=== PATIENT | male | born 1955 | race Caucasian/White ===

== ENCOUNTER 2023-04-23 13:45 | Outpatient (AMB) | payer MEDICARE, SELFPAY ==
--- NOTE | 2023-04-23 13:59 | MHC.OFFVIS ---
Intake Vital Signs 04/23/23 14:02 BP 118/70 Blood Pressure Location Rt brachial Position Sitting Pulse 70 Pulse Source Pulse Oximeter Pulse Oximetry (%) 95 Oxygen Delivery Method Room Air Intake Visit Reasons: ENP-JONAH Allergies environmental allergies Allergy (Unknown, Verified 04/23/23 14:07) Unknown tomato Allergy (Unknown, Verified 04/23/23 14:07) Unknown Medication List - Last Reconciled 04/23/23 by Nahomy Haque MD acetaminophen 500 mg PO Q6H PRN acetaminophen 650 mg PO Q4H PRN acetaminophen 650 mg PO Q6H PRN amiodarone 200 mg PO DAILY amlodipine 10 mg PO DAILY aspirin 81 mg PO DAILY atorvastatin 20 mg PO BEDTIME azelastine 1 spray intranasal BID bisacodyl 10 mg AL DAILY PRN calcium carbonate-vitamin D3 600 mg-10 mcg (400 unit) 1 tab PO DAILY dapagliflozin propanediol (Farxiga) 5 mg PO QAM dulaglutide (Trulicity) 3 mg subcut QWEEK duloxetine 30 mg PO DAILY duloxetine 60 mg PO BEDTIME finasteride 5 mg PO DAILY furosemide (Lasix) 40 mg PO BID glucagon (GlucaGen HypoKit) 1 mg subcut Q20M PRN guaifenesin 200 mg PO Q4H PRN insulin glargine (Lantus U-100 Insulin) 110 units subcut DAILY insulin lispro 25 units subcutaneously with meals; ipratropium-albuterol 0.5 mg-3 mg(2.5 mg base)/3 mL 3 mL inhalation Q6H PRN levothyroxine 100 mcg PO DAILY lisinopril 5 mg PO DAILY loratadine (Allergy Relief (loratadine)) 10 mg PO DAILY menthol 0.1% (Eucerin Itch Relief) ea topical metoprolol tartrate 25 mg PO BID montelukast 10 mg PO BEDTIME naloxone 4 mg/actuation (Narcan) 1 spray intranasal Q2M potassium bicarb-citric acid 20 mEq 20 mEq PO DAILY pregabalin 100 mg PO DAILY tamsulosin 0.4 mg PO BEDTIME trazodone 75 mg PO DAILY HPI HPI Comments History of Present Illness Details 68y/o male with multiple medical comes for sleep evaluation .He is currently in a halfway facility for his back pain. Main complaints- Sleep questionnaire- Difficulty falling asleep-yes 30-45 minutes Difficulty staying asleep-yes Number of arousals-4- 5, nocturia Snoring-yes Witnessed apneas-yes Gasping arousals-yes Nocturia-yes GERD-no Vivid dreams-yes Acting out dreams -no Abnormal behavior in sleep-no ABnormal movements in sleep-yes- lef twicthing Morning headaches-NO Excessive daytime sleepiness-yes Daytime naps- yes- 1 hr restless legs- yes Hallucinations- no sleep paralysis- no Drop attacks- no Sleep study-yes- many years ago He stopped using CPAP when he moved. Sleep Hygiene- Sleep time 10-11 pm Wake time 6am coffee/stimulant use 3-4 cups Phone Electronics use-uses it all day Exercise- none Bedroom comfort- not comfortable [facility] Medical History (Updated 04/23/23 @ 15:00 by Nahomy Haque MD) Hypersomnia Snoring Hypothyroidism COPD (chronic obstructive pulmonary disease) Chronic back pain Insomnia BPH (benign prostatic hyperplasia) CHF (congestive heart failure) Heart failure CKD (chronic kidney disease) Hyperlipidemia HTN (hypertension) Diabetes Depression Surgical History Hx of cholecystectomy History of back surgery Family History Mother Diabetes Social History Household Members Other:: [facility] [place] Housing: Assisted Living Facility Alcohol intake: never Patient Tobacco Use Status: Never used Tobacco Physical Exam Vital Signs: Last Vital Signs Pulse 70 04/23/23 14:02 BP 118/70 04/23/23 14:02 Pulse Ox 95 04/23/23 14:02 Oxygen Delivery Method Room Air 04/23/23 14:02 Const General: cooperative, comfortable and no acute distress Nutritional Appearance: obese Orientation/consciousness: patient oriented x3 Neuro Other: mallampatti grade 4 General: patient oriented x3, tone normal, moves all extremities, no focal motor deficits and Unable to assess gait Cranial nerves: Yes Facial sensation intact/muscles of mastication intact, Yes Bilaterally intact EOM present, Yes Nystagmus not present, Yes Normal facial strength present and Yes Midline tongue present Cognition (Neuro): normal cognition Gait exam (Neuro): Unable to assess gait Assessment & Plan Assessment & Plan (1) Insomnia: Code(s): G47.00 - Insomnia, unspecified (2) Snoring: Code(s): R06.83 - Snoring (3) Hypersomnia: Code(s): G47.10 - Hypersomnia, unspecified Plan I will schedule him for a home sleep test to r/o sleep apnea. Orders: Orders RT home sleep study Today G47.10 - Hypersomnia, unspecified, R06.83 - Snoring Coding Level of Care Code New Pt Level 3 (81668) Diagnoses Insomnia G47.00 Snoring R06.83 Hypersomnia G47.10
[2023-04-23 14:02] VITALS: BP 118/70; PULSE 70; O2SAT 95
== END 2023-04-23 14:43 | disposition home or self-care (01) ==
PROVIDERS: PCP Family Medicine Geriatric Medicine; Visit Provider Psychiatry & Neurology Neurology
DX: G47.00 Insomnia, unspecified (principal); R06.83 Snoring; G47.10 Hypersomnia, unspecified
CPT/HCPCS: 99203

== ENCOUNTER → 2023-04-23 13:45 | Outpatient (BNVA) | payer OTHER, SELFPAY | PROVIDERS: PCP Family Medicine Geriatric Medicine; Visit Provider Nurse Practitioner Family | DX: G47.00 Insomnia, unspecified (principal); G47.10 Hypersomnia, unspecified; R06.83 Snoring | CPT/HCPCS: 99202 ==

== ENCOUNTER → 2023-06-13 20:30 | Outpatient (REF) | payer OTHER, SELFPAY | LOC: HO.SL 20:30 | PROVIDERS: PCP Family Medicine Geriatric Medicine; Visit Provider Psychiatry & Neurology Neurology | DX: G47.33 Obstructive sleep apnea (adult) (pediatric) (principal); R06.83 Snoring; G47.10 Hypersomnia, unspecified; G47.00 Insomnia, unspecified; J44.9 Chronic obstructive pulmonary disease, unspecified | CPT/HCPCS: 95810 ==

== ENCOUNTER → 2023-06-13 22:17 | Outpatient (BNV) | payer OTHER, SELFPAY | PROVIDERS: PCP Family Medicine Geriatric Medicine; Visit Provider Internal Medicine | DX: G47.33 Obstructive sleep apnea (adult) (pediatric) (principal) | CPT/HCPCS: 95810 ==

== ENCOUNTER 2023-08-14 10:14 | Outpatient (AMB) | payer OTHER, SELFPAY ==
--- NOTE | 2023-08-14 10:16 | MHC.OFFVIS ---
Intake Vital Signs 08/14/23 10:28 Height 5 ft 8 in Weight 323 lb BMI 49.1 BP 112/62 Blood Pressure Location Lt brachial Position Semi Flood's Pulse 78 Pulse Source Pulse Oximeter Pulse Oximetry (%) 93 Oxygen Delivery Method Room Air Intake Visit Reasons: 3 mnts f/u for JONAH - Conf w/address Intake Note: Patient presents for 3 months F/U. Allergies environmental allergies Allergy (Unknown, Verified 08/14/23 10:28) Unknown tomato Allergy (Unknown, Verified 08/14/23 10:) Unknown HPI HPI Comments History of Present Illness Details 68 y/o male patient presents for follow up of sleep study. The PSG sleep study result was significant for a mild to moderate degree of sleep apnea. Total AHI was 15/hr, snoring for 27% of the sleep time. Most of the obstructive events were in REM stage and in left lateral position. Pt started APAP at [id number] a few weeks ago. The CPAP compliance and therapy response reviewed. The usage days 16 days and the average usage hours 3 hrs 20 min. The max pressure was 10.9 and the residual AHI was 3.3/hr. Pt reports he sleep well with CPAP, less snoring and rested. He feels less tired in the morning and more awake. [facility] Medical History (Updated 08/14/23 @ 11:20 by Yue Antunez CNP) Hypersomnia Snoring Hypothyroidism COPD (chronic obstructive pulmonary disease) Chronic back pain Insomnia BPH (benign prostatic hyperplasia) CHF (congestive heart failure) Heart failure CKD (chronic kidney disease) Hyperlipidemia HTN (hypertension) Diabetes Depression Surgical History Hx of cholecystectomy History of back surgery Family History Mother Diabetes Social History Household Members Other:: [facility] [place] Housing: Assisted Living Facility Alcohol intake: never Patient Tobacco Use Status: Never used Tobacco Review of Systems Const All systems reviewed & are unremarkable except as noted in HPI and below Physical Exam Vital Signs: Last Vital Signs Pulse 78 08/14/23 10:28 BP 112/62 08/14/23 10:28 Pulse Ox 93 08/14/23 10:28 Oxygen Delivery Method Room Air 08/14/23 10:28 BMI result Body Mass Index 49.1 Const General: cooperative, comfortable and no acute distress Nutritional Appearance: obese Orientation/consciousness: patient oriented x3 Neuro Other: mallampatti grade 4 General: patient oriented x3, tone normal, moves all extremities, no focal motor deficits and Unable to assess gait Cranial nerves: Yes Facial sensation intact/muscles of mastication intact, Yes Bilaterally intact EOM present, Yes Nystagmus not present, Yes Normal facial strength present and Yes Midline tongue present Cognition (Neuro): normal cognition Gait exam (Neuro): Unable to assess gait Assessment & Plan Assessment & Plan (1) JONAH (obstructive sleep apnea): Code(s): G47.33 - Obstructive sleep apnea (adult) (pediatric) Plan Continue to use APAP at [id number] as patient experiences good clinical effects, less snoring and sleep quality and daytime sleepiness has improved. Stressed compliance, use CPAP nightly and more than 4 hrs. Coding Level of Care Code Est Pt Level 3 (80784) Diagnoses JONAH (obstructive sleep apnea) G47.33
[2023-08-14 10:28] VITALS: BP 112/62; PULSE 78; O2SAT 93; BMI 49.1
== END 2023-08-14 10:43 | disposition home or self-care (01) ==
PROVIDERS: PCP Family Medicine Geriatric Medicine; Visit Provider Nurse Practitioner Family
DX: G47.33 Obstructive sleep apnea (adult) (pediatric) (principal)
CPT/HCPCS: 99213

== ENCOUNTER → 2023-08-14 10:14 | Outpatient (BNVA) | payer OTHER, SELFPAY | PROVIDERS: PCP Family Medicine Geriatric Medicine; Visit Provider Nurse Practitioner Family | DX: G47.33 Obstructive sleep apnea (adult) (pediatric) (principal) | CPT/HCPCS: 99212 ==

== ENCOUNTER 2024-02-13 09:39 | Outpatient (AMB) | payer OTHER, SELFPAY ==
--- NOTE | 2024-02-13 09:54 | MHC.OFFVIS ---
Vital Signs 02/13/24 09:55 Height 5 ft 8 in Weight 335 lb BMI 50.9 Intake Visit Reasons: 6 Month F/U Intake Note: Patient presents for 6 month follow up. patient got a cpap sleeping better. Allergies environmental allergies Allergy (Unknown, Verified 02/13/24 10:01) Unknown tomato Allergy (Unknown, Verified 02/13/24 10:01) Unknown Medication List - Last Reconciled 02/13/24 by EDVIN Harris acetaminophen 500 mg PO Q6H PRN acetaminophen 650 mg PO Q4H PRN acetaminophen 650 mg PO Q6H PRN amiodarone 200 mg PO DAILY amlodipine 10 mg PO DAILY aspirin 81 mg PO DAILY atorvastatin 20 mg PO BEDTIME azelastine 1 spray intranasal BID bisacodyl 10 mg [place] DAILY PRN calcium carbonate-vitamin D3 600 mg-10 mcg (400 unit) 1 tab PO DAILY dapagliflozin propanediol (Farxiga) 5 mg PO QAM dulaglutide (Trulicity) 3 mg subcut QWEEK duloxetine 30 mg PO DAILY duloxetine 60 mg PO BEDTIME finasteride 5 mg PO DAILY furosemide (Lasix) 40 mg PO BID glucagon (GlucaGen HypoKit) 1 mg subcut Q20M PRN guaifenesin 200 mg PO Q4H PRN insulin glargine (Lantus U-100 Insulin) 110 units subcut DAILY insulin lispro 25 units subcutaneously with meals; ipratropium-albuterol 0.5 mg-3 mg(2.5 mg base)/3 mL 3 mL inhalation Q6H PRN levothyroxine 100 mcg PO DAILY lisinopril 5 mg PO DAILY loratadine (Allergy Relief (loratadine)) 10 mg PO DAILY menthol 0.1% (Eucerin Itch Relief) ea topical metoprolol tartrate 25 mg PO BID montelukast 10 mg PO BEDTIME naloxone 4 mg/actuation (Narcan) 1 spray intranasal Q2M potassium bicarb-citric acid 20 mEq 20 mEq PO DAILY pregabalin 100 mg PO DAILY tamsulosin 0.4 mg PO BEDTIME trazodone 75 mg PO DAILY HPI Comments Details: 68-yr-old male presents for follow-up visit of sleep apnea. Pt was previously seen by our former colleague Yue Antunez NP. Pt continues to reside in LTC in a [facility], with plans to be discharged home once they can help him find housing. He states he sleeps well with APAP. However, he had not been using the APAP as the mask clip was broken, and he could not afford to replace it. But when he finally thought he could afford to replace it, he was already due to receive a new mask. So, he started to use his APAP again a few days ago. States he does sleep well with use, but is having to get used to using it again. Denies daytime tiredness. He does endorse SOB at times, h/o COPD. He states he does not use supplemental O2. States he is not needing to use a rescue inhaler/tx. Reviewed previous in-lab sleep study: In-lab PSG which revealed: AHI 15/hr and REM AHI 31/hr w/ O2 andres 78% w/ SpO2 < 88% x's 63 min, and average SpO2 89%; Periodic limb movement of sleep (PLMS) index: 53/hr; PLMS arousal index: 6/hr. Current 90 dfay compliance report: [facility] [place] [address] Email: [email or web address] Compliance Report Usage 11/15/2023 - 02/12/2024 Usage days days (10%) >= 4 hours 4 days (4%) < 4 hours 5 days (6%) Average usage (days used) 3 hours 30 minutes AirSense 10 AutoSet Serial number [id number] Mode AutoSet Min Pressure 5 cmH2O Max Pressure 20 cmH2O EPR Fulltime EPR level 3 Response Standard Therapy Pressure - cmH2O Median: 6.7 95th percentile: 8.7 Maximum: 9.3 Leaks - L/min Median: 8.7 95th percentile: 21.9 Maximum: 61.1 Events per hour AI: 1.0 HI: 0.2 AHI: 1.2 Apnea Index Central: 0.1 Obstructive: 0.7 Unknown: 0.2 RERA Index 0.1 PFSH Medical History Hypersomnia Snoring Hypothyroidism COPD (chronic obstructive pulmonary disease) Chronic back pain Insomnia BPH (benign prostatic hyperplasia) CHF (congestive heart failure) Heart failure CKD (chronic kidney disease) Hyperlipidemia HTN (hypertension) Diabetes Depression Surgical History Hx of cholecystectomy History of back surgery Family History Mother Diabetes Social History Household Members Other:: [facility] [place] Housing: Assisted Living Facility Alcohol intake: never Patient Tobacco Use Status: Never used Tobacco Physical Exam Vital Signs: BMI result Body Mass Index 50.9 Const General: cooperative, no acute distress, alert and awake Orientation/consciousness: patient oriented x3 HEENT Other: Mallampati stage Resp Effort & Inspection: normal respiratory effort and able to speak in complete sentences Neuro General: patient oriented x3 Cranial nerves: Yes CN's II-XII intact bilaterally Gait exam (Neuro): Normal gait present Psych Mental Status: mental status grossly normal Speech and movement: Clear speech present Attitude: cooperative Assessment & Plan Assessment & Plan (1) JONAH (obstructive sleep apnea): Code(s): G47.33 - Obstructive sleep apnea (adult) (pediatric) Category: Medical (2) Nocturnal hypoxemia: Code(s): G47.34 - Idiopathic sleep related nonobstructive alveolar hypoventilation Category: Medical (3) COPD (chronic obstructive pulmonary disease): Code(s): J44.9 - Chronic obstructive pulmonary disease, unspecified Category: Medical Plan Reviewed results of previous sleep study report, results c/w mild-moderate sleep apnea w/ increased severity in REM sleep and in left sided sleep position, as well as nocturnal hypoxemia. Although current [employer] compliance report does show low residual AHI, the APAP device itself cannot be used to determine current APAP tx efficacy on optimizing pt's nocturnal hypoxemia. Thus, I have advised to undergo in-lab PAP titration study w/ ET Co2 levels to determine optimal PAP treatment settings of both sleep apneas and nocturnal hypoxemia. In the meantime, continue APAP 5-20 cmH2O nightly > 4 hours. Clean CPAP machine and supplies routinely. Change CPAP supplies routinely. Pt to contact us or respiratory company with any questions or concerns. SNF info: [facility] Unit- Room 101-B Orders: Orders RT PSG in-lab sleep titration Today G47.33 - Obstructive sleep apnea (adult) (pediatric), G47.34 - Idiopathic sleep related nonobstructive alveolar hypoventilation, J44.9 - Chronic obstructive pulmonary disease, unspecified Coding Level of Care Code Est Pt Level 4 (63558) Diagnoses JONAH (obstructive sleep apnea) G47.33 Nocturnal hypoxemia G47.34 COPD (chronic obstructive pulmonary disease) J44.9
[2024-02-13 09:55] VITALS: BMI 50.9
== END 2024-02-13 11:01 | disposition home or self-care (01) ==
PROVIDERS: PCP Family Medicine Geriatric Medicine; Visit Provider Nurse Practitioner Family
DX: G47.33 Obstructive sleep apnea (adult) (pediatric) (principal); G47.34 Idiopathic sleep related nonobstructive alveolar hypoventilation; J44.9 Chronic obstructive pulmonary disease, unspecified
CPT/HCPCS: 99214

== ENCOUNTER → 2024-02-13 09:39 | Outpatient (BNVA) | payer MEDICARE, OTHER, SELFPAY | PROVIDERS: PCP Family Medicine Geriatric Medicine; Visit Provider Nurse Practitioner Family ==

== ENCOUNTER 2024-03-09 19:36 | Emergency (ER) | payer OTHER, SELFPAY ==
--- NOTE | 2024-03-09 | ECG_ITS ---
Test Reason : HYPERTENSION Blood Pressure : / mmHG Vent. Rate : 070 BPM Atrial Rate : 070 BPM P-R Int : 176 ms QRS Dur : 098 ms QT Int : 426 ms P-R-T Axes : 083 026 040 degrees QTc Int : 460 ms Normal sinus rhythm Normal ECG No previous ECGs available Referred By: Generic ED Physician Electronically Signed By:GRETA GUAN MD
[2024-03-09 19:46] VITALS: BP 137/68; PULSE 76; RESP 18; TEMP 36.8; O2SAT 97; BMI 48.7
[2024-03-09 20:05] LABS: Glucose, Whole Blood 220 mg/dL (60-115)
--- NOTE | 2024-03-09 20:08 | PC.NURSE ---
Pt A&Ox3 skin pwd respirations even unlabored. Currently being treated for UTI on day 3 of abx. Pt previously denied pain, now reporting intermittent sharp chest pain x 4 days. Worse upon inspiration radiating into back. EKG ordered and given to provider, REENA on monitor. Awaiting provider eval, aware of plan of care.
[2024-03-09 20:13] VITALS: PULSE 80; RESP 18; O2SAT 96
[2024-03-09 20:30] LABS: MANUAL DIFF FLAG NO
[2024-03-09 20:32] LABS: Basophils Absolute Auto 0.1 X10*3/uL (0.0-0.2); Basophils Percent Auto 0.5 % (0-2); Eosinophils Absolute Auto 0.2 X10*3/uL (0.0-0.4); Eosinophils Percent Auto 1.7 % (0-4); Hematocrit 47.4 % (42.0-52.0); Hemoglobin 15.8 g/dl (14.0-18.0); Imm Gran Abs Auto 0.04 X10*3/uL (0.00-0.03); Imm Gran Pct Auto 0.4 % (0.0-0.4); Lymphocytes Absolute Auto 1.4 X10*3/uL (1.2-4.9); Lymphocytes Percent Auto 13.9 % (20-40); Mean Corpuscular HGB Conc 33.3 g/dl (31.0-36.0); Mean Corpuscular Hemoglobin 29.9 pg (27.0-33.0); Mean Corpuscular Volume 89.8 fL (80.0-98.0); Mean Platelet Volume 11.8 fL (9.4-12.4); Monocytes Absolute Auto 0.8 X10*3/uL (0.1-1.2); Monocytes Percent Auto 7.8 % (2-11); Neutrophils Absolute Auto 7.5 x10*3/uL (2.0-8.3); Neutrophils Percent Auto 75.7 % (45-73); Platelet Count 192 X10*3/uL (160-400); Red Blood Count 5.28 X10*6/uL (4.60-5.80); Red Cell Distribution Width 14.1 % (11.0-16.0); White Blood Count 9.9 X10*3/uL (4.8-10.8)
[2024-03-09 20:51] LABS: Alanine Aminotransferase 19 U/L (0-40); Alkaline Phosphatase 105 U/L (39-117); Anion Gap 14 (12-20); Aspartate Amino Transferase 21 U/L (5-37); Bilirubin Total 0.3 mg/dL (0.0-1.0); Blood Urea Nitrogen 26 mg/dL (9-16); Calcium 9.8 mg/dL (8.4-10.2); Carbon Dioxide 23 mmol/L (22-29); Chloride 103 mmol/L (96-108); Creatinine Clr Calc Pharmacy 54.4; Estimated Glomerular Filt Rate 36; Glucose Random 247 mg/dL (60-115); Potassium 4.3 mmol/L (3.3-5.1); Sodium 136 mmol/L (135-145); Total Protein 7.3 g/dL (6.5-8.0)
[2024-03-09 20:54] LABS: B Type Natriuretic Peptide 29 pg/mL (<100)
[2024-03-09 20:56] LABS: Troponin-I High Sensitivity 13.2 ng/L (<3.5-35.0)
[2024-03-09 22:09] VITALS: BP 115/59; PULSE 68; RESP 16; TEMP 36.8; O2SAT 94
--- NOTE | 2024-03-09 22:13 | PC.NURSE ---
Aspen from [place] called this RN. Pt was given trazadone before leaving facility as well as metoprolol. Pt continues to await primary provider jayy.
--- NOTE | 2024-03-09 23:15 | PC.NURSE ---
to stacey for primary eval.
--- NOTE | 2024-03-09 23:18 | ED_ITS ---
HPI - General Adult General Chief complaint: General Medical Stated complaint: HTN 204/115 Time Seen by Provider: 03/09/24 23:10 Source: patient and EMS Mode of arrival: EMS Limitations: no limitations History of Present Illness ED Provider: Dr. Chanda Ruff HPI narrative: Patient comes to the emergency room complaining of high blood pressure. Patient states that he was in a pen[facility]iary, coming from [facility] in [place]. He was about to go to get a sleep study done, prior to transfer, at the penitentiary to check his blood pressure. Patient was informed that his blood pressure was was ?high?. Patient states that he has no symptoms, no chest pain shortness of breath, headache, blurred vision. Patient states that he takes blood pressure medications and he is compliant with his meds. Related Data Home Medications ?Medication ?Instructions ?Recorded ?Confirmed acetaminophen 325 mg capsule 650 mg PO Q4H PRN 04/23/23 02/13/24 acetaminophen 500 mg capsule 500 mg PO Q6H PRN 04/23/23 02/13/24 acetaminophen 650 mg/20.3 mL oral 650 mg PO Q6H PRN 04/23/23 02/13/24 solution amiodarone 200 mg tablet 200 mg PO DAILY 04/23/23 02/13/24 amlodipine 10 mg tablet 10 mg PO DAILY 04/23/23 02/13/24 aspirin 81 mg chewable tablet 81 mg PO DAILY 04/23/23 02/13/24 atorvastatin 20 mg tablet 20 mg PO BEDTIME 04/23/23 02/13/24 azelastine 137 mcg (0.1 %) nasal 1 spray intranasal BID 04/23/23 02/13/24 spray bisacodyl 10 mg rectal suppository 10 mg MT DAILY PRN 04/23/23 02/13/24 calcium carbonate 600 mg-vitamin 1 tab PO DAILY 04/23/23 02/13/24 D3 10 mcg (400 unit) tablet dapagliflozin propanediol 5 mg 5 mg PO QAM 04/23/23 02/13/24 tablet (Farxiga) dulaglutide 3 mg/0.5 mL 3 mg subcut QWEEK 04/23/23 02/13/24 subcutaneous pen injector ([facility]) duloxetine 30 mg capsule,delayed 30 mg PO DAILY 04/23/23 02/13/24 release sprinkle duloxetine 30 mg capsule,delayed 60 mg PO BEDTIME 04/23/23 02/13/24 release sprinkle finasteride 5 mg tablet 5 mg PO DAILY 04/23/23 02/13/24 furosemide 40 mg tablet (Lasix) 40 mg PO BID 04/23/23 02/13/24 glucagon 1 mg solution for 1 mg subcut Q20M PRN 04/23/23 02/13/24 injection (GlucaGen HypoKit) guaifenesin 100 mg/5 mL oral liquid 200 mg PO Q4H PRN 04/23/23 02/13/24 insulin glargine 100 unit/mL 110 unit subcut DAILY 04/23/23 02/13/24 subcutaneous solution (Lantus U-100 Insulin) insulin lispro 100 unit/mL 25 unit subcut .COMPLEX 04/23/23 02/13/24 subcutaneous pen ipratropium 0.5 mg-albuterol 3 mg 3 ml inhalation Q6H PRN 04/23/23 02/13/24 (2.5 mg base)/3 mL nebulization soln levothyroxine 100 mcg capsule 100 mcg PO DAILY 04/23/23 02/13/24 lisinopril 5 mg tablet 5 mg PO DAILY 04/23/23 02/13/24 loratadine 10 mg tablet (Allergy 10 mg PO DAILY 04/23/23 02/13/24 Relief (loratadine)) menthol 0.1 % lotion (Eucerin Itch ea topical 04/23/23 02/13/24 Relief) metoprolol tartrate 25 mg tablet 25 mg PO BID 04/23/23 02/13/24 montelukast 10 mg tablet 10 mg PO BEDTIME 04/23/23 02/13/24 naloxone 4 mg/actuation nasal 1 spray intranasal Q2M 04/23/23 02/13/24 spray (Narcan) potassium bicarbonate-citric acid 20 meq PO DAILY 04/23/23 02/13/24 20 mEq effervescent tablet pregabalin 100 mg capsule 100 mg PO DAILY 04/23/23 02/13/24 tamsulosin 0.4 mg capsule 0.4 mg PO BEDTIME 04/23/23 02/13/24 trazodone 50 mg tablet 75 mg PO DAILY 04/23/23 02/13/24 Allergies Allergy/AdvReac Type Severity Reaction Status Date / Time environmental allergies Allergy Unknown Unknown Verified 02/13/24 10:01 tomato Allergy Unknown Unknown Verified 02/13/24 10:01 Penicillins Allergy Unknown Verified 03/09/24 19:49 Review of Systems 2 Review of Systems: Constitutional : No Weight loss, No Fever, No Chills, No Night Sweats, No Fatigue, No Malaise ENT/Mouth : No Hearing loss, No Ear Pain, No Nasal Congestion, No Sinus Pain, No Hoarseness, No sore throat, No Rhinorrhea, No Swallowing Difficulty Eyes: No Eye Pain, No Swelling, No Redness, No Foreign Body, No Discharge, No Vision Changes Cardiovascular : No Chest Pain, No SOB, No Dyspnea on Exertion, No Orthopnea, No Edema, No Palpitations Respiratory : No Cough, No Sputum, No Wheezing, No Smoke Exposure, No Dyspnea Gastrointestinal : No Nausea, No Vomiting, No Diarrhea, No Constipation, No abdominal Pain, No Hematochezia, No Melena Genitourinary : no irregular bleeding, No Dysuria, No Urinary Frequency, No Hematuria, No Urinary Incontinence, No Urgency, No Flank Pain, No Urinary Flow Changes, No Hesitancy Musculoskeletal : No joint pain, No Myalgias, No Joint Swelling Skin : No Skin Lesions, No rash Neuro : No Weakness, No Numbness, No Paresthesias, No Loss of Consciousness, No Dizziness, No Headache Psych : No Anxiety/Panic, No Depression, No SI/HI/AH/VH, No Social Issues, Heme/Lymph: No Bruising, No Bleeding,No Lymphadenopathy Endocrine : No Polyuria, No Polydipsia, No Temperature Intolerance [facility] Past Medical History Medical History Hypersomnia Snoring Hypothyroidism COPD (chronic obstructive pulmonary disease) Chronic back pain Insomnia BPH (benign prostatic hyperplasia) CHF (congestive heart failure) Heart failure CKD (chronic kidney disease) Hyperlipidemia HTN (hypertension) Diabetes Depression Surgical History Hx of cholecystectomy History of back surgery Family History Family History Mother Diabetes Social History Social History Household Members Other:: [facility] [place] Housing: Assisted Living Facility Alcohol intake: never Patient Tobacco Use Status: Never used Tobacco Smoked in Last 30 Days: No Use of substances other than those prescribed or required for medical reasons: No Advance Directives: No Advance Directives Information Provided: No Do you have a plan to hurt others: No Plan Physical Exam ED Vital Signs: Vital Signs - 24 hr 03/09/24 19:46 03/09/24 20:13 03/09/24 22:09 Temperature 98.3 F 98.3 F Pulse Rate 76 80 68 Respiratory Rate 18 18 16 Blood Pressure 137/68 115/59 L Pulse Oximetry 97 96 94 Oxygen Delivery Method Room Air Room Air Room Air BMI result Body Mass Index 48.7 Const Other: Appearance: Alert. Oriented X3. No acute distress. Eyes: Pupils equal, round and reactive to light. ENT: Pharynx normal. Neck: Normal inspection. Neck supple. No lymph nodes noted. No crepitus CVS: Normal heart rate and rhythm. Pulses normal. Normal S1 and S2 Respiratory: No respiratory distress. Breath sounds normal. No Wheezing. No rales Abdomen: Soft and nontender. No rigidity. No distention. Skin: Skin warm and dry. Normal skin color. Normal skin turgor. Extremities: No lower extremity edema. No Lacerations. No Rash, chronic venous stasis Neuro: Oriented X 3. No motor deficit. No sensory deficit. Moving all extremities. No slurred speech. CN 2 through 12 grossly intact Psych: calm, cooperative, normal affect Medical Decision Making Medical Decision Making MDM Narrative: My interpretation of EKG: Normal sinus rhythm, heart rate 70, no ST segment depression or elevation, no T-wave inversion, QTC 460 -my interpretation of labs: Normal hematology, chemistry shows creatinine of 1.88. Patient does have history of chronic kidney disease., normal LFTs, normal troponin and BNP -patient's blood pressure in the emergency room have ranged between 115 systolic 124 systolic. -no episodes of hypotension here in the emergency room. Patient is asymptomatic. -it is possible that patient may have gotten anxious when they picked him up and then his blood pressure self corrected. Or, the blood pressure device at the penitentiary is not working well or is not calibrated Lab Data MDM Lab Attestation statement: I reviewed the patient's lab results. 03/09/24 20:27 03/09/24 20:27 Labs: Lab Results 03/09/24 03/09/24 Range/Units 20:01 20:27 WBC 9.9 (4.8-10.8) X10*3/uL RBC 5.28 (4.60-5.80) X10*6/uL Hgb 15.8 (14.0-18.0) g/dl Hct 47.4 (42.0-52.0) % MCV 89.8 (80.0-98.0) fL MCH 29.9 (27.0-33.0) pg MCHC 33.3 (31.0-36.0) g/dl RDW 14.1 (11.0-16.0) % Plt Count 192 (160-400) X10*3/uL MPV 11.8 (9.4-12.4) fL Immature Gran % (Auto) 0.4 (0.0-0.4) % Neut % (Auto) 75.7 H (45-73) % Lymph % (Auto) 13.9 L (20-40) % [place] % (Auto) 7.8 (2-11) % Eos % (Auto) 1.7 (0-4) % Baso % (Auto) 0.5 (0-2) % Lymph # (Auto) 1.4 (1.2-4.9) X10*3/uL [place] # (Auto) 0.8 (0.1-1.2) X10*3/uL Eos # (Auto) 0.2 (0.0-0.4) X10*3/uL Baso # (Auto) 0.1 (0.0-0.2) X10*3/uL Abs Immat Gran (auto) 0.04 H (0.00-0.03) X10*3/uL Absolute Neuts (auto) 7.5 (2.0-8.3) x10*3/uL Absolute Nucleated RBC 0.000 (0.0-0.012) X10*3/uL Nucleated RBC % (auto) 0.0 (0.0-0.2) /100WBC Sodium 136 (135-145) mmol/L Potassium 4.3 (3.3-5.1) mmol/L Chloride 103 (96-108) mmol/L Carbon Dioxide 23 (22-29) mmol/L Anion Gap 14 (12-20) BUN 26 H (9-16) mg/dL Creatinine 1.88 H (0.5-1.4) mg/dL Estim Creat Clear Calc 54.4 Estimated GFR 36 POC Glucose 220 H (60-115) mg/dL Random Glucose 247 H (60-115) mg/dL Calcium 9.8 (8.4-10.2) mg/dL Total Bilirubin 0.3 (0.0-1.0) mg/dL AST 21 (5-37) U/L ALT 19 (0-40) U/L Alkaline Phosphatase 105 (39-117) U/L Troponin I High Sens 13.2 (<3.5-35.0) ng/L B-Natriuretic Peptide 29 (<100) pg/mL Total Protein 7.3 (6.5-8.0) g/dL Albumin 4.0 (3.5-5.0) g/dL Independent Interpretation I performed an independent interpretation of an: EKG Discharge Plan Discharge Clinical Impression: Hypertension Patient Disposition: Home, Self-Care Instructions: Hypertension (ED) Additional Instructions: Your blood pressure has been normal in the emergency room from the time that you arrived. No changes have been made to your medications. Please follow-up with your primary care physician tomorrow. If you have any worsening or new symptoms, please return to the emergency room or call 911 Prescriptions: No Action acetaminophen 500 mg capsule 500 mg PO Q6H PRN acetaminophen 325 mg capsule 650 mg PO Q4H PRN acetaminophen 650 mg/20.3 mL solution 650 mg PO Q6H PRN amiodarone 200 mg tablet 200 mg PO DAILY amlodipine 10 mg tablet 10 mg PO DAILY aspirin 81 mg tablet,chewable 81 mg PO DAILY atorvastatin 20 mg tablet 20 mg PO BEDTIME azelastine 137 mcg (0.1 %) aerosol,spray 1 spray intranasal BID Rx Instructions: administer into each nostril bisacodyl 10 mg suppository 10 mg MT DAILY PRN calcium carbonate-vitamin D3 600 mg-10 mcg (400 unit) tablet 1 tab PO DAILY duloxetine 30 mg capsule, delayed rel sprinkle 30 mg PO DAILY duloxetine 30 mg capsule, delayed rel sprinkle 60 mg PO BEDTIME Eucerin Itch Relief 0.1 % lotion topical Farxiga 5 mg tablet 5 mg PO QAM finasteride 5 mg tablet 5 mg PO DAILY tamsulosin 0.4 mg capsule 0.4 mg PO BEDTIME Trulicity 3 mg/0.5 mL pen injector 3 mg subcut QWEEK GlucaGen HypoKit 1 mg recon soln 1 mg subcut Q20M PRN Rx Instructions: until target blood sugar attained guaifenesin 100 mg/5 mL liquid 200 mg PO Q4H PRN insulin lispro 100 unit/mL insulin pen 25 unit subcut .COMPLEX Rx Instructions: 25 units subcutaneously with meals; insulin glargine [Lantus U-100 Insulin] 100 unit/mL solution 110 unit subcut DAILY ipratropium-albuterol 0.5 mg-3 mg(2.5 mg base)/3 mL solution for nebulization 3 ml inhalation Q6H PRN furosemide [Lasix] 40 mg tablet 40 mg PO BID levothyroxine 100 mcg capsule 100 mcg PO DAILY lisinopril 5 mg tablet 5 mg PO DAILY loratadine [Allergy Relief (loratadine)] 10 mg tablet 10 mg PO DAILY metoprolol tartrate 25 mg tablet 25 mg PO BID montelukast 10 mg tablet 10 mg PO BEDTIME naloxone [Narcan] 4 mg/actuation spray,non-aerosol 1 spray intranasal Q2M Rx Instructions: spray 1 dose into ONE nostril; alternate nostrils w each dose until help arrives potassium bicarb-citric acid 20 mEq tablet, effervescent 20 meq PO DAILY pregabalin 100 mg capsule 100 mg PO DAILY trazodone 50 mg tablet 75 mg PO DAILY Print Language: Welsh
--- NOTE | 2024-03-09 23:33 | PC.NURSE ---
Pt cleared for dc back to facility. Transport booked.
[2024-03-09 23:37] VITALS: BP 109/60; PULSE 91; RESP 16; TEMP 36.7; O2SAT 97
--- NOTE | 2024-03-09 23:39 | MHC.EDTECH ---
This pct assumed care of Patient at 2300 ,vitals taken ,Patient waiting for discharged Paperwork .
[2024-03-10 00:39] VITALS: BP 109/60; PULSE 91; RESP 16; TEMP 36.7; O2SAT 97
== END 2024-03-10 00:39 | disposition home or self-care (01) ==
PROVIDERS: Emergency Provider Emergency Medicine
DX: I13.0 Hypertensive heart and chronic kidney disease with heart failure and stage 1 through stage 4 chronic kidney disease, or unspecified chronic kidney disease (principal); E11.22 Type 2 diabetes mellitus with diabetic chronic kidney disease; N18.9 Chronic kidney disease, unspecified; I50.9 Heart failure, unspecified; Z79.899 Other long term (current) drug therapy
CPT/HCPCS: 36415; 80053; 82947; 83880; 84484; 85025; 93005; 99283; 99284

== ENCOUNTER → 2024-03-09 19:51 | Outpatient (BNV) | payer OTHER, SELFPAY | PROVIDERS: Emergency Provider Emergency Medicine; Visit Provider Internal Medicine Cardiovascular Disease | DX: I10 Essential (primary) hypertension (principal) | CPT/HCPCS: 93010 ==

== ENCOUNTER 2025-02-23 11:35 | Outpatient (REF) | payer MEDICARE, SELFPAY ==
--- OUTSIDE RECORDS SUMMARY | 2025-02-23 10:15 | XMS_ITS | Encounter Summary ---
Author Organization [employer] Address [address] [place] [address] Care Team Providers Care Mixing And Dispensing Supervisor Name Role Phone Julio C Duarte MD Primary Care Prov ider Encounter Details Date Type Department Care Team ([facility] st Contact Info) Description 02/23/2025 10:15 AM EDT Office Visit [facility] [address] [place], [place] [phone] Julio C Duarte MD [address] [place] [address] Type 2 diabetes mellitus with stage 4 chronic kidney disease, with long-term current use of insulin (HCC) Social History Tobacco Use Types Packs/Day Years Used Date Smoking Tobacco: Every Day Cigarettes 2 25 Started: 1984 Smokeless Tobacco: Never Alcohol Use Standard Drinks/Week Comments Never 0 (1 standard drink = 0.6 oz pur e alcohol) Depression Answer Date Recorded Patient Health Questionnaire-9 Score 5 01/27/2025 Patient Health Questionnaire-9 Score 5 01/27/2025 Last PHQ-9: Questionnaire Data Not on file 0 01/27/2025 Housing Stability Answer Date Recorded What is your housing situation today? I have eligio pickering 01/27/[address] you li ve. Do you have problems with any of the following? None of the above 01/27/2025 Food Insecurity Answer Date Recorded Within the past 12 months, y ou worried that your food would run out before you got money to buy more: Never True 01/27/2025 Within the past 12 months,th e food you bought just didn't last and you didn't have enough money to get more: Never True Transportation Answer Date Recorded In the past 12 months, has l ack of transportation kept you from medical appts, meetings, work or from getting things needed for daily living? No 01/27/2025 Utilities Answer Date Recorded In the past 12 months, has t he electric, gas, oil or water company threatened to shut off services in your home? No 01/27/2025 Depression Answer Date Recorded Patient Health Questionnaire-2 Score 2 01/27/2025 Internet Access Answer Date Recorded Internet Access Q1 Yes 01/27/2025 Internet Access Q2 Not on file 01/27/2025 Sex and Gender Information Value Date Recorded Sex Assigned at Male 12/13/2023 11:04 AM EDT Legal Sex Male 11:03 AM EDT Gender Identity Male 12/13/2023 11:04 AM EDT Sexual Orientation Choose not to disclose 2023 11:04 AM EDT documented as of this encounter Last Filed Vital Signs Vital Sign Reading Time Taken Comments Blood Pressure 124/78 02/23/2025 10:43 AM EDT Pulse 76 02/23/2025 10:43 AM EDT Temperature 36.6 C (97.8 F) 02/23/2025 10:43 AM EDT Respiratory Rate 16 02/23/2025 10:43 AM EDT Oxygen Saturation - - Inhaled Oxygen Concentration - - Weight 126 kg (278 lb) 02/23/2025 10:43 AM EDT Height 165.1 cm (5' 5 ) 02/23/2025 10:43 AM EDT Body Mass Index 46.26 02/23/2025 10:43 AM EDT documented in this encounter Plan of Treatment Upcoming Encounters Date Type Department Care Team (Late st Contact Info) Description 04/06/2025 9:30 AM EST Telemedicine [facility] [address] [place] [address] Julio C Duarte MD [address] [place] [address] documented as of this encounter Procedures Procedure Name Priority Date/Time Associated Diagnosis Comments POCT GLUCOSE Routine 02/23/2025 1:51 PM EDT Type 2 diabetes mellitus with stage 4 chronic kidney disease, with long-term current use of insulin (HCC) POCT GLYCATED HEMOGLOBIN, TOTAL Routine 02/23/2025 1:50 PM EDT Type 2 diabetes mellitus with stage 4 chronic kidney disease, with long-term current use of insulin (HCC) documented in this encounter Results * (ABNORMAL) POCT Glucose (02/23/2025 1:51 PM EDT) Glucose Blood, POC 265(A) 60 - 200 mg/dL QC Media Lot # [id number] Lot# Expiration Date [id number] Blood Capillary blood specimen / Unknown 02/23/2025 1:51 PM EDT Julio C Bañuelos MD POINT OF CARE TEST ENTER/EDIT ORDERABLES Final Result * (ABNORMAL) POCT Hgb A1c (02/23/2025 1:50 PM EDT) Hemoglobin A1C 9.3(A) 4.0 - 5.7 % QC Media Lot # [id number] Lot# Expiration Date ,[id number] Blood 02/23/2025 1:50 PM EDT Julio C Bañuelos MD POINT OF CARE TEST ENTER/EDIT ORDERABLES Final Result documented in this encounter Visit Diagnoses Diagnosis Type 2 diabetes mellitus with stage 4 chronic kidney disease, with long-term current use of insulin (HCC) documented in this encounter Additional Health Concerns Assessment Noted Time PHQ-9 Depression Total Score: 5 01/28/20 25 10:24 AM EDT documented as of this encounter Care Teams Mixing And Dispensing Supervisor Relationship Specialty Start Date End Date Julio C Duarte MD [address] [place] [id number] PCP - General Internal Medicine [facility] documented as of this encounter
[2025-02-23 14:23] LABS: Appearance Urine Clear; Glucose Urine UA >=1000 mg/dL (Negative); PH 7.0 (5.0-9.0); Specific Gravity - Urine 1.010 (1.005-1.025); UMIC TRIGGER UACC YES
[2025-02-23 14:26] LABS: UACC Culture Trigger YES
[2025-02-23 14:48] LABS: MANUAL DIFF FLAG NO
[2025-02-23 14:52] LABS: Hematocrit 51.3 % (42.0-52.0); Hemoglobin 16.7 g/dl (14.0-18.0); Imm Gran Abs Auto 0.05 X10*3/uL (0.00-0.03); Imm Gran Pct Auto 0.5 % (0.0-0.4); Lymphocytes Absolute Auto 1.1 X10*3/uL (1.2-4.9); Mean Corpuscular HGB Conc 32.6 g/dl (31.0-36.0); Mean Corpuscular Hemoglobin 28.6 pg (27.0-33.0); Mean Corpuscular Volume 88.0 fL (80.0-98.0); NRBC Abs Auto 0.000 X10*3/uL (0.0-0.012); NRBC Pct Auto 0.0 /100WBC (0.0-0.2); Platelet Count 225 X10*3/uL (160-400); Red Blood Count 5.83 X10*6/uL (4.60-5.80); White Blood Count 9.9 X10*3/uL (4.8-10.8)
--- OUTSIDE RECORDS SUMMARY | 2025-02-23 15:07 | XMS_ITS | Clinical Summary ---
Author Organization [facility], Address [address] [place] [address] [place] [address] Phone Care Team Providers Care Gimp Tacker Name Role Phone Milana Wang MD Primary Care Provider [phone] Allergies Active Allergy Reactions Criticality Noted Date Comments Penicillins 09/17/2019 Medications glucose monitoring kit (FREESTYLE) monitoring kit 1 each if needed Active albuterol HFA (PROVENTIL HFA;VENTOLIN HFA) 108 (90 Base) MCG/ACT inhaler Inhale 2 puffs every 6 (six) hours if needed for wheezing Active insulin glargine (LANTUS) 100 UNIT/ML injection Inject under the skin every night Active DULoxetine (CYMBALTA) [address] capsule Take 60 mg by mouth 1 (one) time each day Do not crush or chew. Active tamsulosin (FLOMAX) 0.4 MG 24 hr capsule Take 0.4 mg by mouth 1 (one) time each day Active pregabalin (LYRICA) 100 MG capsule Take 100 mg by mouth 2 (two) times a day Active insulin aspart (NovoLOG) 100 UNIT/ML injection Inject under the skin 3 (three) times a day before meals Active potassium chloride (KLOR-CON) 20 MEQ packet Take 20 mEq by mouth 2 (two) times a day Active Cholecalcifero l (VITAMIN D-3) 125 MCG (5000 UT) tablet Take by mouth Active amiodarone (PACERONE) 200 MG tablet Take 200 mg by mouth 1 (one) time each day Active finasteride (PROSCAR) 5 MG tablet Take 5 mg by mouth 1 (one) time each day Do not crush, chew, or split. Active levothyroxine sodium (TIROSINT) 112 MCG capsule Take 112 mcg by mouth 1 (one) time each day Active lovastatin (MEVACOR) 40 MG tablet Take 40 mg by mouth every night Active HumaLOG KWIKPEN 200 UNIT/ML solution pen-injector injection 1 Active Accu-Chek Sayra Plus test strip USE STRIP TO CHECK GLUCOSE TWICE DAILY DIRECTED 0 Active atorvastatin (LIPITOR) 20 MG tablet TAKE 1 TABLET BY MOUTH ONCE DAILY FOR 90 DAYS 0 Active lisinopril (PRINIVIL,ZEST RIL) 5 MG tablet Take 5 mg by mouth daily 0 Active metoprolol tartrate (LOPRESSOR) 25 MG tablet Take 25 mg by mouth 2 (two) times a day 0 Active RELION PEN NEEDLE 31G/8MM 31G X 8 MM misc USE TO TEST DIRECTED 6 TIMES A DAY SUBCUTANEOUSLY 0 Active montelukast (SINGULAIR) 10 MG tablet Take 10 mg by mouth 1 (one) time each day in the evening 0 Active triamcinolone (KENALOG) 0.1 % cream APPLY TOPICALLY TWICE DAILY 0 Active acetaminophen (TYLENOL) 325 MG tablet Take by mouth every 6 (six) hours if needed for mild pain Active azelastine (ASTELIN) 0.1 % nasal spray Administer 1 spray into each nostril 2 (two) times a day Use in each nostril as directed Active Dulaglutide (Trulicity) 0.75 MG/0.5ML solution pen-injector Inject 0.5 mL under the skin every 7 (seven) days Active aspirin (ST TAVON) 81 MG EC tablet Take 81 mg by mouth 1 (one) time each day Active amLODIPine (NORVASC) 10 MG tablet Take 10 mg by mouth 1 (one) time each day Active Torsemide 40 MG tablet Take 40 mg by mouth 1 (one) time each day Active Active Problems Problem Noted Date Diagnosed Date Stage 3b chronic kidney disease 03/18/2022 Obstructive nephropathy 03/18/2022 Other retention of urine 03/18/2022 Type 2 diabetes mellitus without complication Hypertension 09/17/2019 Congestive heart failure 09/17/2019 Resolved Problems Problem Noted Date Diagnosed Date Resolved Date Chronic renal insufficiency 09/17/2019 03/18/2022 Social History Tobacco Use Types Packs/Day Years Used Date Smoking Tobacco: Former Smokeless Tobacco: Never Tobacco Cessation:Counseling Given: Not Answered Alcohol Use Standard Drinks/Week Comments Yes 0 (1 standard drink = 0.6 oz pur e alcohol) rare Sex and Gender Information Value Date Recorded Sex Assigned at Not on file Legal Sex Male 2:27 PM EDT Gender Identity Not on file Sexual Orientation Not on file Last Filed Vital Signs Vital Sign Reading Time Taken Comments Blood Pressure 90/60 10/05/2024 10:10 AM EDT Pulse 80 09/17/2022 10:28 AM EDT Temperature - - Respiratory Rate - - Oxygen Saturation 96% 09/17/2022 10:28 AM EDT Inhaled Oxygen Concentration - - Weight 150 kg (330 lb) 09/17/2022 10:28 AM EDT Height 177.8 cm (5' 10 ) 09/17/2022 10:28 AM EDT Body Mass Index 47.35 09/17/2022 10:28 AM EDT Plan of Treatment Upcoming Encounters Date Type Department Care Team (Late st Contact Info) Description 04/26/2025 2:30 PM EST Office Visit [facility] [address] [place] [phone] Blas Quick MD [address] [place] [address] [place] [phone] Health Maintenance Due Date Last Done Comments Pneumococcal Vaccine: 50+ Ye ars (1 of 2 - PCV) 1974 Colorectal Cancer Screening: Annual FOBT 2004 Colorectal Cancer Screening: Colonoscopy 2004 Colorectal Cancer Screening: Sigmoidoscopy 2004 Diabetes: Hemoglobin A1C 03/18/2022 Diabetes: Ophthalmology Exam 03/18/2022 Diabetes: Pedal Pulse Checked 03/18/2022 Diabetes: Sensory Foot Exam 03/18/2022 Diabetes: Visual Foot Exam 03/18/2022 Influenza Vaccine (#1) 2025 Hepatitis B Vaccine Aged Out No longe r eligible based on patient's age to complete this topic Insurance [facility] Medicare Medicare Medicaid [place] [address] [place] [address] Care Teams Gimp Tacker Relationship Specialty Start Date End Date Milana Wang MD [address] [place] [id number] PCP - General Internal Medicine 09/17/19
--- OUTSIDE RECORDS SUMMARY | 2025-02-23 15:07 | XMS_ITS | Encounter Summary ---
Author Organization [employer] Address [address] [place] [address] Care Team Providers Care And Rescue Fire Fighter Crash Fire Name Role Phone Julio C Duarte MD Primary Care Prov ider Reason for Visit * Reason Onset Date Comments Chart Prep 02/22/2025 Encounter Details Date Type Department Care Team ([facility] Contact Info) Description 02/22/2025 Telephone [facility] [address] [place] [address] Julio C Duarte MD [address] [place] [address] Chart Prep Social History Tobacco Use Types Packs/Day Years [...] AM EDT documented as of this encounter Miscellaneous Notes * Telephone Encounter - Ashley Arechiga [place] - 02/22/2025 2:38 PM EDT Chart Prep Labs: not done Images: done Referrals: not applicable Vaccines due:due Screenings: colonoscopy, eye exam, foot exam, STI screening, and Lung CA screening Overdue care gaps: A1c and Glucose documented in this encounter Plan of Treatment Upcoming Encounters Date Type Department Care Team (Late st Contact Info) Description 04/06/2025 9:30 AM EST Telemedicine [facility] [address] [place] [address] Julio C Duarte MD [address] [place] [address] documented as of this encounter Visit Diagnoses Not on filedocumented in this encounter Additional Health Concerns Assessment Noted Time PHQ-9 Depression Total Score: 5 01/28/20 25 10:24 AM EDT documented as of this encounter Care Teams And Rescue Fire Fighter [employer] Relationship Specialty Start Date End Date Julio C Duarte MD [address] [place] [address] PCP - General Internal Medicine 12/22/24 [facility] 01/25/25 documented as of this encounter
--- OUTSIDE RECORDS SUMMARY | 2025-02-23 15:08 | XMS_ITS | Clinical Summary ---
Author Organization [employer] Address [address] [place] [address] Care Team Providers Care Manager Of Manufacturing Name Role Phone Julio C Duarte MD Primary Care Prov ider Allergies Active Allergy Reactions Criticality Noted Date Comments Penicillins 12/22/2024 Medications DULoxetine (Cymbalta) [address] capsule Take 1 capsule (30 mg) by mouth in the morning. Do not crush or chew. 30 capsule 2 12/22/2024 5 Active DULoxetine (Cymbalta) [address] capsule Take 1 capsule (60 mg) by mouth at bedtime. Do not crush or chew. 30 capsule 2 12/22/2024 5 Active insulin lispro (HumaLOG) 100 UNIT/ML injection Inject 10 Units under the skin with breakfast, with lunch, and with evening meal. 11/10/2020 Active Insulin Glargine-yfgn 100 UNIT/ML solution pen-injector Inject 20 Units under the skin Once per day. 08/18/2024 Active gabapentin (Neurontin) 100 MG capsule Take 1 capsule (100 mg) by mouth at bedtime. 30 capsule 11 01/27/2025 6 Active traZODone (Desyrel) 50 MG tablet Take 1 tablet (50 mg) by mouth at bedtime. 90 tablet 3 01/27/2025 6 Active tamsulosin (Flomax) 0.4 MG 24 hr capsule Take 1 capsule (0.4 mg) by mouth Once per day. 90 capsule 3 01/27/2025 6 Active clopidogrel (Plavix) 75 MG tablet Take 1 tablet (75 mg) by mouth Once per day. 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 Not at target He was discharged from hospital on a lower dose than what he used to be for insulin. Increase lantus to 20 units and restart short acting insulin 10 units tid before meals. Followed by endocrinology, told to schedule a follow up DNR (do not resuscitate) 01/27/2025 Assessment & Plan (01/27/2025 1:59 PM EDT): Discussed with patient his wishes. He does not want to have CPR in a cardiorespiratory event, does not want to be intubated for more than 24 hours, does not want to get dialysis. Encounter for medical examination to establish c are 12/22/2024 Assessment & Plan (12/22/2024 2:29 PM EDT): PCP: located at [place] Hospitalization: 12/2024 due to CVA s/p stent, PMHx: afib, DM, self catheterization due to enlarged, stage 4 ckd, HTN, CVA, hyperlipidemia, hypothyroidism Pshx: gallbladder 2017, back surgery 1973, hip surgery Right 2010 All: PNC Meds: insulin 10 units morning, eliquis 5mg BID, spironolactone 25mg daily, levothyroxine 112mcg, metoprolol tartrate 50mg BID, hailey 10mg, torsemide 20mg daily, albuterol PRN, atorvastatin 40mg daily, duloxetine 30mg, duloxetine 60mg at night, montelukast 10mg, tamsulosin 0.4mg, trazodone 50mg bedtime, plavix 75mg, proscar 5mg Colonosocopy done about 10 yrs ago Encounters Date Type Department Care Team Description 02/23/2025 10:15 AM EDT Office Visit [facility] [address] [place] [address] Julio C Duarte MD Type 2 diabetes mellitus with stage 4 chronic kidney disease, with long-term current use of insulin ([facility]) 02/23/2025 Travel 02/22/2025 Telephone [facility] [address] [place] [address] Julio C Duarte MD Chart Prep 02/16/2025 Telephone [facility] [address] [place] [address] Yelena Nicholson, PharmD 02/04/2025 Telephone [facility] [address] [place] [address] Yelena Nicholson, PharmD 01/27/2025 10:00 AM EDT Office Visit [facility] [address] [place] [address] Julio C Duarte MD Type 2 diabetes mellitus with stage 4 chronic kidney disease, with long-term current use of insulin ([facility] [place]) (Primary Dx); Dietary counseling; Exercise counseling; Primary hypertension; DNR (do not resuscitate) 01/27/2025 Travel 01/26/2025 Travel 01/26/2025 Telephone [facility] [address] [place] [address] Julio C Duarte MD chart prep 01/08/2025 Telephone [facility] [address] [place] [address] Julio C Duarte MD verbal order 12/22/2024 1:45 PM EDT Telemedicine [facility] [address] [place] [address] Julio C Duarte MD Encounter for medical examination to establish care (Primary Dx) 12/22/2024 Travel 12/21/2024 Telephone [facility] [address] [place] [address] Julio C Duarte MD chart prep 12/02/2024 Telephone [facility] [address] [place] [address] Julio C Duarte MD No Show 12/02/2024 Telephone [facility] [address] [place] [address] Julio C Duarte MD Televisit appt 12/01/2024 Telephone [facility] [address] [place] [address] Nicki Castañeda MA Chart Prep from Last 3 Months Immunizations Immunization Administration Dates Next Due Influenza, IIV3, injectable 02/15/2023 RSV Adjuvant 07/12/2023 RSV-MAB, Unspecified 07/12/2023 SARS-CoV-2, Unspecified 04/05/2022 Family History Medical History Relation Name Comments Kidney disease Father Bone cancer Maternal Grandfather Diabetes Mother Bone cancer Paternal Grandmother Relation Name Status Comments Father Maternal Grandfather Mother Paternal Grandmother Social History Tobacco Use Types Packs/Day Years Used Date Smoking Tobacco: Every Day Cigarettes 2 25 Started: 1984 Smokeless Tobacco: Never Tobacco Cessation:Ready to Q uit: Not Asked; Counseling Given: Not Answered Alcohol Use Standard Drinks/Week Comments Never 0 [...] not to disclose 2023 11:04 AM EDT Last Filed Vital Signs Vital Sign Reading [...] Mass Index 46.26 02/23/2025 10:43 AM EDT Plan of Treatment Upcoming Encounters Date Type Department Care Team (Late st Contact Info) Description 04/06/2025 9:30 AM EST Telemedicine [facility] [address] [place] [address] Julio C Duarte MD [address] [place] [address] Health Maintenance Due Date Last Done Comments CT Colonography 1955 Colonoscopy 1955 Colorectal Cancer Screening 1955 FIT DNA/Cologuard 1955 FIT 1955 FOBT 1955 Lipid Panel 1955 Sigmoidoscopy 1955 Diabetes: Foot Exam 1965 Eye Exam 1965 Hepatitis C Screening 1973 DTaP/Tdap/Td Vaccines (1 - Tdap) 1974 Pneumococcal Vaccine: 50+ Years (1 of 2 - PCV) 1974 Lung Cancer Screening 2005 Zoster Vaccines (1 of 2) 2005 COVID-19 Vaccine ( season) 2025 08/22/2023, 02/08/2023, 04/05/2022, Additional history exists Influenza Vaccine (#1) 2025 02/15/2023 Diabetes: Hemoglobin A1C 05/26/2025 02/23/2025 Alcohol/Substance Use Screening 01/27/2026 01/27/2025 Depression Screening 01/27/2026 01/27/2025, 01/28/20 25 SDOH Screening 01/27/2026 01/27/2025 Tobacco Screening 02/15/2026 02/15/2025 RSV Patients and Patients Aged 60 years or older Completed 07/12/2023 RSV under 20 months Aged Out 07/12/2023 No longe r eligible based on patient's age to complete this topic HIB Vaccines Aged Out No longer eligi ble based on patient's age to complete this topic HPV Vaccines Aged Out No longer eligi ble based on patient's age to complete this topic Hepatitis A Vaccines Aged Out No long er eligible based on patient's age to complete this topic Hepatitis B Vaccines Aged Out No long er eligible based on patient's age to complete this topic IPV Vaccines Aged Out No longer eligi ble based on patient's age to complete this topic Meningococcal B Vaccine Aged Out No l onger eligible based on patient's age to complete this topic Meningococcal Vaccine Aged Out No baljeet hiral eligible based on patient's age to complete this topic Rotavirus Vaccines Aged Out No longer eligible based on patient's age to complete this topic Procedures Procedure Name Priority Date/Time Associated Diagnosis Comments POCT GLUCOSE Routine 02/23/2025 1:51 PM EDT Type 2 diabetes mellitus with stage 4 chronic kidney disease, with long-term current use of insulin (HCC) POCT GLYCATED HEMOGLOBIN, TOTAL Routine 02/23/2025 1:50 PM EDT Type 2 diabetes mellitus with stage 4 chronic kidney disease, with long-term current use of insulin (HCC) URINALYSIS, COMPLETE, WITH REFLEX TO CULTURE Routine 02/23/2025 11:40 AM EDT Type 2 diabetes mellitus with stage 4 chronic kidney disease, with long-term current use of insulin (HCC) CBC WITH AUTO DIFFERENTIAL Routine 02/23/2025 11:38 AM EDT Type 2 diabetes mellitus with stage 4 chronic kidney disease, with long-term current use of insulin (HCC) from Last 3 Months Results * (ABNORMAL) POCT Glucose (02/23/2025 1:51 PM EDT) Pathologist [facility] Glucose Blood, POC 265(A) 60 - 200 mg/dL QC Media Lot # [id number] Lot# Expiration Date , Blood Capillary blood specimen / Unknown 02/23/2025 1:51 PM EDT Julio C Bañuelos MD POINT OF CARE TEST ENTER/EDIT ORDERABLES Final Result * (ABNORMAL) POCT Hgb A1c (02/23/2025 1:50 PM EDT) [facility] Hemoglobin A1C 9.3(A) 4.0 - 5.7 % QC Media Lot # [id number] Lot# Expiration Date [id number] Blood 02/23/2025 1:50 PM EDT Julio C Bañuelos MD POINT OF CARE TEST ENTER/EDIT ORDERABLES Final Result * (ABNORMAL) Urinalysis, Complete, with Reflex to Culture (02/23/2025 11:40 AM EDT) Pathologist [facility] Color Urine Yellow [facility] Appearance Urine Clear [facility] PH 7.0 5.0 - 9.0 [facility] Glucose Urine UA >=1000(A) Negative mg/dL [facility] Urine Blood Trace(A) Negative [facility] Specific Allison - Urine 1.010 1.005 - 1.025 [facility] Urine Protein Negative Neg-Trace mg/dL [facility] Urine Ketones Negative Negative mg/dL [facility] Nitrite Urine Negative Negative [facility] Leukocyte Esterase Urine Large (3+)(A) Negative [facility] RBC Urine 0-2 0 - 2 /HPF [facility] Urine WBC >50(A) 0 - 5 /HPF [facility] Urine Squamous Epithelial Cell 0-2 0 - 2 /HPF [facility] Urine Bacteria 4+ None Seen [facility] Hyaline Casts, Urine 0-2 0 - 2 /LPF [facility] Urine 02/23/2025 11:4 0 AM EDT 02/23/2025 2:13 PM EDT Narrative [facility] - 02/23/2025 2:26 PM EDT [id number], Clean Catch us Julio C Bañuelos MD LAB URINE ORDERABL ES Final Result [facility] [address] [place] [phone] * (ABNORMAL) CBC auto differential (02/23/2025 11:38 AM EDT) White Blood Count 9.9 4.8 - 10.8 X10*3/uL [facility] Red Blood Count 5.83(H) 4.60 - 5.80 X10*6/uL [facility] Hemoglobin 16.7 14.0 - 18.0 g/dl [facility] Hematocrit 51.3 42.0 - 52.0 % [facility] Mean Corpuscular Volume 88.0 80.0 - 98.0 fL [facility] Mean Corpuscular Hemoglobin 28.6 27.0 - 33.0 pg [facility] Mean Corpuscular HGB Conc 32.6 31.0 - 36.0 g/dl [facility] Red Cell Distribution Width 15.8 11.0 - 16.0 % [facility] Platelet Count 225 160 - 400 X10*3/uL [facility] Mean Platelet Volume 11.4 9.4 - 12.4 fL [facility] Neutrophils Percent Auto 77.5(H) 45 - 73 % [facility] Imm Gran Pct Auto 0.5(H) 0.0 - 0.4 % [facility] Lymphocytes Percent Auto 11.5(L) 20 - 40 % [facility] Monocytes Percent Auto 7.5 2 - 11 % [facility] Eosinophils Percent Auto 2.4 0 - 4 % [facility] Basophils Percent Auto 0.6 0 - 2 % [facility] NRBC Pct Auto 0.0 0.0 - 0.2 /100WBC [facility] Neutrophils Absolute Auto 7.7 2.0 - 8.3 x10*3/uL [facility] Imm Gran Abs Auto 0.05(H) 0.00 - 0.03 X10*3/uL [facility] Lymphocytes Absolute Auto 1.1(L) 1.2 - 4.9 X10*3/uL [facility] Monocytes Absolute Auto 0.7 0.1 - 1.2 X10*3/uL [facility] Eosinophils Absolute Auto 0.2 0.0 - 0.4 X10*3/uL [facility] Basophils Absolute Auto 0.1 0.0 - 0.2 X10*3/uL [facility] NRBC Abs Auto 0.000 0.0 - 0.012 X10*3/uL [facility] Blood Venous blood specimen / Unknown 02/23/2025 11:38 AM EDT 02/23/2025 2:44 PM EDT us Julio C Bañuelos MD LAB BLOOD ORDERABL ES Final Result [facility] [address] [place] [address] [phone] from Last [address] [place] [id number] [facility] Care Teams Manager Of Manufacturing Relationship Specialty Start Date End Date Julio C Duarte MD [address] [place] [phone] PCP - General Internal Medicine 12/22/24 [facility] 01/25/25
--- OUTSIDE RECORDS SUMMARY | 2025-02-23 15:08 | XMS_ITS | Encounter Summary ---
Author Organization [facility], Address [address] [place] [address] Phone Care Team Providers Care Lab Asst Name Role Phone Milana Wang MD Primary Care Provider [phone] Encounter Details Date Type Department Care Team (Late Contact Info) Description 04/03/2024 Documentation Only [facility] [address] [place] [address] [place] [address] [place] [phone] Social History Tobacco Use Types Packs/Day Years Used Date Smoking Tobacco: Former Smokeless Tobacco: Never Alcohol Use Standard Drinks/Week Comments Yes 0 (1 standard drink = 0.6 oz pur e alcohol) rare Sex and Gender Information Value Date Recorded Sex Assigned at Not on file Legal Sex Male 2:27 PM EDT Gender Identity Not on file Sexual Orientation Not on file documented as of this encounter Plan of Treatment Upcoming Encounters Date Type Department Care Team (Late st Contact Info) Description 04/26/2025 2:30 PM EST Office Visit [facility] [address] [place] [address] Blas Quick MD [address] [place] [address] Dr[address] Verón[place] [address] documented as of this encounter Visit Diagnoses Not on filedocumented in this encounter Care Teams Lab Asst Relationship Specialty Start Date End Date Milana Wang MD [address] [place] [phone] PCP - General Internal Medicine 09/17/19 documented as of this encounter
--- OUTSIDE RECORDS SUMMARY | 2025-02-23 15:08 | XMS_ITS | Encounter Summary ---
Author Organization [facility], Address [address] [place] [address] Phone Care Team Providers Care Beam Builder Name Role Phone Milana Wang MD Primary Care Provider [phone] Encounter Details Date Type Department Care Team (Late Contact Info) Description 06/27/2023 Documentation Only [facility] [address] [place] [address] [place] [address] [place] [phone] Social History Tobacco Use Types Packs/Day [...] [facility] [address] [place] [address] Blas Quick MD [address] [place] [address] Dr[address] [place]ón[place] [address] documented as of this encounter Visit Diagnoses Not on filedocumented in this encounter Care Teams Beam Builder Relationship Specialty Start Date End Date Milana Wang MD [address] [place] [phone] PCP - General Internal Medicine 09/17/19 documented as of this encounter
--- OUTSIDE RECORDS SUMMARY | 2025-02-23 15:08 | XMS_ITS | Encounter Summary ---
Author Organization [facility], Address [address] [place] [address] Phone Care Team Providers Care Timber Framer Helper Name Role Phone Milana Wang MD Primary Care Provider Encounter Details Date Type Department Care Team (Late Contact Info) Description 06/24/2023 Documentation Only [facility] [address] [place] [address] [place] [address] [place] [phone] Social History Tobacco Use Types Packs/Day [...] Visit [facility] [address] [place] [address] Blas Quick MD [address] [place] [address] Dr[address] [place]ón[place] [address] documented as of this encounter Visit Diagnoses Not on filedocumented in this encounter Care Teams Timber Framer Helper Relationship Specialty Start Date End Date Milana Wang MD [address] [place] [phone] PCP - General Internal Medicine 09/17/19 documented as of this encounter
--- OUTSIDE RECORDS SUMMARY | 2025-02-23 15:08 | XMS_ITS | Encounter Summary ---
Author Organization [employer] Address [address] [facility] [address] [place] [address] Care Team Providers Care Html Web Developer Name Role Phone Julio C Duarte MD Primary Care Prov ider Encounter Details Date Type Department Care Team (Latest Contact Info) Description 02/23/2025 Travel Social History Tobacco Use Types Packs/Day Years Used Date Smoking Tobacco: Every Day Cigarettes 2 Started: 1984 Smokeless Tobacco: Never Alcohol Use [...] AM EDT documented as of this encounter Plan of Treatment Upcoming Encounters Date Type Department Care Team (Late st Contact Info) Description 04/06/2025 9:30 AM EST Telemedicine [facility] [address] [place] [address] Julio C Duarte MD [address] [place] [address] documented as of this encounter Visit Diagnoses Not on filedocumented in this encounter Additional Health Concerns Assessment Noted Time PHQ-9 Depression Total Score: 5 01/28/20 25 10:24 AM EDT documented as of this encounter Care Teams Html Web Developer Relationship Specialty Start Date End Date Julio C Duarte MD [address] [place] [address] PCP - General Internal Medicine [facility] documented as of this encounter
[2025-02-23 15:20] LABS: Microalbum/Creatinine Ratio Ur 89.9 ug/mg cr (<30)
[2025-02-23 17:59] LABS: Anion Gap 14 (12-20)
[2025-02-23 18:04] LABS: Alanine Aminotransferase 12 U/L (0-40); Albumin Level 4.5 g/dL (3.5-5.0); Alkaline Phosphatase 99 U/L (39-117); Aspartate Amino Transferase 22 U/L (5-37); Blood Urea Nitrogen 29 mg/dL (9-16); Calcium 9.4 mg/dL (8.4-10.2); Carbon Dioxide 25 mmol/L (22-29); Chloride 104 mmol/L (96-108); Cholesterol 112 mg/dL (<200); Estimated Glomerular Filt Rate 34; HDL Cholesterol 44 mg/dL (>40); Potassium 3.7 mmol/L (3.3-5.1); Sodium 139 mmol/L (135-145); Total Protein 7.6 g/dL (6.5-8.0); Triglycerides 108 mg/dL (<150)
== END 2025-02-23 11:36 | disposition home or self-care (01) ==
LOC: HO.CHCLDS 11:35
PROVIDERS: Visit Provider Internal Medicine
DX: E11.22 Type 2 diabetes mellitus with diabetic chronic kidney disease (principal); N18.4 Chronic kidney disease, stage 4 (severe); Z79.4 Long term (current) use of insulin
CPT/HCPCS: 36415; 80053; 80061; 81001; 82043; 82570; 84443; 85025; 87086; 87088; 87186